=== PATIENT | male | born 1950 | race Caucasian/White ===

== ENCOUNTER 2017-05-23 22:14 | Inpatient (IN) | payer OTHER, MEDICAID ==
[~2017-05-23] VITALS: Ht 172.7 cm; Wt 93.9 kg
[~2017-05-23 22:14] MED LIST: ALBMDI INH; BENZ100C67 PO; CLAR500T PO; PHEDM120 PO
[2017-05-23 22:15] VITALS: BP_SYST 105
--- NOTE | 2017-05-23 22:21 | NUR ---
Placed in room 02 . Placed on cardiac cath rn, blood pressure machine and pulse oximeter. To gown for exam. Side rails up. Report given to ANETTE Cuevas.
--- NOTE | 2017-05-23 22:28 | NUR ---
Pt seen in room 2. pt is awake, alert, oriented. Presented claiming blood pressure to be low this afternoon. Pt states he went up to the restroom stated difficulty and dizziness, in which his son took his BP at that time and it was reportedly "80's over 40's". Pt had been admitted several days ago for pneumonia in which he spent 3 days in the hospital receiving antibiotics.
[2017-05-23] MEDS ORDERED: NACL 0.9% 1,000 ML IV ONE (22:30)
--- NOTE | 2017-05-23 22:33 | NUR ---
ER Dr. Nobles at bedside examining patient.
[2017-05-23 23:18] LABS: HEMATOCRIT 45.6 % (36-54); HEMOGLOBIN 14.9 g/dL (14.0-18.0); MEAN CORPUSCULAR HEMOGLOBIN 29 pg (27-31); MEAN CORPUSCULAR HGB CONC 33 % (32-36); MEAN CORPUSCULAR VOLUME 88 fL (79.0-98.0); PLATELET COUNT (AUTO) 303 K/uL (130-430); RED BLOOD CELL COUNT(AUTO) 5.19 MIL/uL (4.2-6.2); RED CELL DISTRIBUTION WIDTH 12.6 % (9.0-15.0); WHITE BLOOD COUNT (AUTO) 23.1 K/uL (4.8-10.8)
[2017-05-23 23:41] LABS: BAND % (MANUAL) 1 % (0-6); BASOPHILS % (MANUAL) 0 % (0-2); EOSINOPHILS % (MANUAL) 0 % (0-7); LYMPHOCYTES % (MANUAL) 7 % (20-46); MONOCYTES % (MANUAL) 7 % (0-11)
[2017-05-23 23:51] LABS: ALANINE AMINOTRANSFERASE 31 U/L (12-78); ALBUMIN 3.5 g/dL (3.4-4.8); ASPARTATE AMINOTRANSFERASE 18 U/L (10-37); CALCIUM 9.5 mg/dL (8.4-11.0); CHLORIDE 98 mmol/L (98-107); CREATININE 1.41 mg/dL (0.55-1.30); GLUCOSE 224 mg/dL (70-99); LIPASE 186 U/L (73-393); POTASSIUM 4.1 mmol/L (3.5-5.1); SODIUM SERUM 135 mmol/L (136-145)
[2017-05-24] VITALS (7 sets, daily range): BP systolic 122–143
[2017-05-24 00:09] LABS: ANION GAP 12 (5-15); UREA NITROGEN, BLOOD 18 mg/dL (8-21)
[2017-05-24 00:21] LABS: GFR AFRICAN AMERICAN 65 mL/min (>90)
[2017-05-24] MEDS ORDERED: NACL 0.9% 1,000 ML IV ONE ×2 (00:45→02:15)
[2017-05-24] MEDS ORDERED: PIPERACILLIN/TAZO 4.5 GM in NS 100 ML IV ONE (02:15)
[2017-05-24] MEDS ORDERED: PIPERACILLIN/TAZOBACTAM 4.5 GM/VIAL (ZOSYN) IV ONE (02:25)
[2017-05-24 02:57] LABS: BILIRUBIN,URINE NEGATIVE (NEGATIVE); BLOOD, URINE NEGATIVE (NEGATIVE); CLARITY/URINE CLEAR (CLEAR); COLOR,URINE YELLOW (YELLOW); GLUCOSE,URINE NEGATIVE (NEGATIVE); KETONES,URINE NEGATIVE (NEGATIVE); LEUKOCYTE ESTERASE ,URINE NEGATIVE (NEGATIVE); NITRITE, URINE NEGATIVE (NEGATIVE); PROTEIN URINE 2+ (NEGATIVE); UROBILINOGEN,URINE 0.2 (0.2-1.0)
[2017-05-24 03:08] LABS: BACTERIA,URINE FEW /HPF (None Seen); RBC,URINE 0-3 /HPF (0-3); WBC,URINE 0-3 /HPF (0-3)
[2017-05-24] MEDS ORDERED: ERGO500043 PO (04:28)
[2017-05-24] MEDS ORDERED: PRO20 PO (04:28)
[2017-05-24] MEDS ORDERED: DIPH25CA83 PO (04:28)
[2017-05-24] MEDS ORDERED: [UNRECOGNIZED DRUG - CODE] PO (04:28)
[2017-05-24] MEDS ORDERED: FLO220 INH (04:28)
[2017-05-24] MEDS ORDERED: SITA100T7 PO (04:28)
[2017-05-24] MEDS ORDERED: CANA100T PO (04:28)
[2017-05-24] MEDS ORDERED: OLME1TAB34 PO (04:28)
[2017-05-24] MEDS ORDERED: MONT10TA22 PO (04:28)
[2017-05-24] MEDS ORDERED: LEVO500T20 PO (04:28)
[2017-05-24] MEDS ORDERED: GLU500 PO (04:28)
[2017-05-24] MEDS ORDERED: ROSU20TA PO (04:28)
[2017-05-24] MEDS ORDERED: HYDR-4100 PO (04:28)
[2017-05-24] MEDS ORDERED: INSULIN REGULAR, HUMAN 100 UNITS/ML, 10 ML VIAL (novoLIN R) SUBCUT PRN (04:45)
[2017-05-24] MEDS ORDERED: cefTRIAXone 1 GM IVPB PREMIX 50 ML IV SCH (04:45)
--- NOTE | 2017-05-24 04:55 | NUR ---
SPOKE TO DR HANNON FOR ADMISSION ORDERS.
--- NOTE | 2017-05-24 05:19 | NUR ---
ADMIT NOTE Received pt from ER to the floor with a diagnosis of sepsis. Admission process initiated. patient oriented to pain management, safety and call light-teach back done.
--- NOTE | 2017-05-24 05:25 | NUR ---
Patient will be admitted to care of DR. CA. Admitted to TELEMETRY unit. Will go to room 100B. Belongings list completed. Summary report printed. Report given at bedside.
[2017-05-24] MEDS ORDERED: cefTRIAXone 1 GM IVPB PREMIX 50 ML IV ONE (05:46)
[2017-05-24] MEDS: NACL 0.9% 1,000 ML IV SCH ×2 (05:48→11:24)
[2017-05-24] MEDS: cefTRIAXone 1 GM IVPB PREMIX 50 ML IV SCH (05:48)
--- NOTE | 2017-05-24 06:23 | NUR ---
Patient awake alert ambulatory skin dry warm intact procedures explained call cross with patient safety measures implemented / .
--- NOTE | 2017-05-24 06:24 | NUR ---
BLOOD SUGAR BLOOD SUGAR READIN. NO COVERAGE GIVEN PER SLIDING SCALE. WILL CONTINUE TO MONITOR.
--- NOTE | 2017-05-24 06:25 | NUR ---
ROCEPHIN 1 GM IVPB INFUSING , NO S/SX OF ALLERGIC REACTION NO HIVES SKIN REMAINS RASH FREE , continue to monitor .
--- NOTE | 2017-05-24 06:43 | NUR ---
CLOSING NOTE WILL ENDORSE CARE AND REPORT TO DAY SHIFT NURSE. PATIENT IS RESTING IN BED WITH EYES OPEN. PT IN STABLE CONDITION AT THIS TIME. NO NEW NEEDS AT THIS TIME. FALL AND SAFETY PRECAUTIONS IN PLACE. IV FLUIDS AND ABX RUNNING PER ORDERS. NO S/S OF DISTRESS OR DISCOMFORT AT THIS TIME. CALL LIGHT WITH PATIENT.
[2017-05-24] MEDS: IPRATROPIUM/ALBUTEROL SULFATE 3 ML AMPUL.NEB INH SCH ×4 (07:00→23:00)
--- NOTE | 2017-05-24 07:26 | NUR ---
OPENING NOTE: PATIENT JONI IN BED RESTING. IV PATENT AND INTACT.. SCDS IN PLACE. PATIENT DENIES PAIN AND DISCOMFORT. PATIENT DENIES DIZZINESS AND WEAKNESS. BREATHING IS EVEN AND UNLABORED WITH NO SIGNS OF DISTRESS. BED IN LOW POSITION, WHEELS LOCKED , SIDE RIALS X3 AND CALL LIGHT WITHIN REACH. WILL CONTINUE TO MONITOR.
[2017-05-24] MEDS: AZITHROMYCIN 250 MG TABLET PO SCH (09:02)
--- NOTE | 2017-05-24 10:03 | NUR ---
ROUNDING: PATIENT LAYING IN BED RESTING.
--- NOTE | 2017-05-24 11:59 | NUR ---
ROUNDING: PATIENT LAYING IN BED RESTING. PATIENT DENIES PAIN AND DISCOMFORT. BREATHING IS EVEN AND UNLABORED WITH NO SIGNS OF DISTRESS. MORNING MEDICATIONS TOLERATED WELL. SAFETY PRECAUTIONS TAKEN. WILL CONTINUE TO MONITOR.
--- NOTE | 2017-05-24 13:59 | NUR ---
ROUNDING: PATIENT LAYING IN BED RESTING. TALKING ON PHONE.
--- NOTE | 2017-05-24 16:00 | NUR ---
ROUNDING: PATIENT LAYING IN BED RESTING. FAMILY AT BEDSIDE. PATIENT DENIES PAIN AND DISCOMFORT. ALL NEEDS MET. WILL CONTINUE TO MONITOR.
[2017-05-24] MEDS ORDERED: PROMETHAZINE-DM 6.25 MG-15 MG/5 ML UDC PO PRN (16:45)
[2017-05-24] MEDS ORDERED: HYDROcodone/ACETAMIN 10-325 MG TAB PO PRN (16:45)
[2017-05-24] MEDS ORDERED: FLUoxetine HCL 20 MG CAPSULE (PROzac) PO ONE (16:45)
[2017-05-24] MEDS: metFORMIN HCL 500 MG TABLET PO SCH (17:07)
--- NOTE | 2017-05-24 17:44 | NUR ---
CARDIO CONSULTS CALLED CARDIAC CONSULT WITH DR ABAD, DR [employer]. SPOKE TO LAVERNE MADISON.
--- NOTE | 2017-05-24 18:17 | NUR ---
CLOSING NOTE: PATIENT SITTING IN BED ON PHONE. IV PATENT AND INTACT. SCDS IN PLACE. PATIENT DENIES PAIN AND DISCOMFORT. PATIENT DENIES HEADACHE AND DIZZINESS. BREATHING IS EVEN AND UNLABORED WITH NO SIGNS OF DISTRESS. NO EPISODES OF HYPOTENSION NOTED ON SHIFT. BED IN LOW POSITION, WHEELS LOCKED, SIDE RIALS X3 AND CALL LIGHT WITHIN REACH. ALL NEEDS MET. WILL ENDORSE PLAN OF CARE TO NOC, NURSE.
--- NOTE | 2017-05-24 19:15 | NUR ---
change of shift.pt.presents stable status.pt.introduce outside room;pt.is ambulating.pt.presents stable status;general. iv access:lock.respiratory status stable;absent distress/discomfort.f/u w/ pt.when returns to room.
--- NOTE | 2017-05-24 20:00 | NUR ---
pt.assessed.v/s assessed;values w/in normal limits.b/p slight elevation;pt.returned to bed post ambulation. no c/o pain,nausea.i have apprised the pt.that snacks are available throughout the shift.no requests@this hour. room air respiratory status stable.call light/telephone w/in the pt's reach.
[2017-05-24] MEDS ORDERED: MONTELUKAST 10 MG TABLET PO SCH (21:00)
--- NOTE | 2017-05-24 22:00 | NUR ---
pt.assessed.pt,.presents quiescent affect;calm,asleep.pt.capable to reposition self.absent distress/discomfort.breathing pattern/character absent distress/discomfort.call light/telephone w/in the pt's reach.
[2017-05-25 00:53] VITALS: BP_SYST 137
[2017-05-25] MEDS: IPRATROPIUM/ALBUTEROL SULFATE 3 ML AMPUL.NEB INH SCH ×3 (03:00→10:06)
[2017-05-25] MEDS: cefTRIAXone 1 GM IVPB PREMIX 50 ML IV SCH (05:21)
--- NOTE | 2017-05-25 06:30 | NUR ---
pt.has presented stable status w/in the shift.pt.has utilized the restroom and the urinal.i have emptied the urinal throughout the shift.pt.presents room air:02 sat%=98%;breathing pattern;absent distress/discomfort.hhn:ordered;q-4hrs/p.pt.ambulatory.gait steady.pt.had c/o pain;headache.i administered norco:10/325mg po;headache resolved;there is no existing tylenol order.blood glucose assessed x2;blood glucose values w/i normal limits;no coverage per sliding scale required.pt.had requested snacks: i have provided the snacks:throughout the shift.call ligth/telewphone w/in the pt's reach.
[2017-05-25 07:41] LABS: BASOPHILS % (AUTO) 0.3 % (0.0-2.0); EOSINOPHILS # (AUTO) 0.1 K/uL (0.0-0.4); EOSINOPHILS % (AUTO) 0.8 % (0.0-4.0); HEMATOCRIT 43.1 % (36-54); HEMOGLOBIN 14.1 g/dL (14.0-18.0); LYMPHOCYTES # (AUTO) 2.4 K/uL (1.0-5.5); LYMPHOCYTES % (AUTO) 18.1 % (20.5-51.5); MEAN CORPUSCULAR HEMOGLOBIN 29 pg (27-31); MEAN CORPUSCULAR HGB CONC 33 % (32-36); MEAN CORPUSCULAR VOLUME 88 fL (79.0-98.0); MONOCYTES # (AUTO) 1.5 K/uL (0.0-1.0); NEUTROPHILS # (AUTO) 9.5 K/uL (1.8-7.7); NEUTROPHILS % (AUTO) 69.8 % (40.0-70.0); PLATELET COUNT (AUTO) 281 K/uL (130-430); RED BLOOD CELL COUNT(AUTO) 4.88 MIL/uL (4.2-6.2); RED CELL DISTRIBUTION WIDTH 12.8 % (9.0-15.0); WHITE BLOOD COUNT (AUTO) 13.5 K/uL (4.8-10.8)
[2017-05-25 07:48] VITALS: BP_SYST 144
--- NOTE | 2017-05-25 07:58 | NUR ---
RECEIVED PT IN ROOM, PT SITTING ON EOB, PT IS AAOX4,PT AMBULATORY. DENIES PAIN, PT ON RA, NO SOB, NO DISTRESS,. PT HAS COUGH BUT NON PRODUCTIVE THIS TIME, VITALS WNL. AFEBRILE. ENCOURAGED TO CALL FOR ASSIST AND PAIN MEDS. WILL CONT TO MONITOR.
[2017-05-25] MEDS: metFORMIN HCL 500 MG TABLET PO SCH (08:13)
[2017-05-25] MEDS: AZITHROMYCIN 250 MG TABLET PO SCH (08:14)
[2017-05-25 08:22] LABS: ALBUMIN 3.7 g/dL (3.4-4.8); CALCIUM 9.8 mg/dL (8.4-11.0); CREATININE 0.74 mg/dL (0.55-1.30); TOTAL BILIRUBIN 0.6 mg/dL (0.0-1.0)
[2017-05-25] MEDS ORDERED: FLUoxetine HCL 20 MG CAPSULE (PROzac) PO SCH (09:00)
[2017-05-25] MEDS ORDERED: ATORVASTATIN 20 MG TABLET PO SCH (09:00)
[2017-05-25] MEDS ORDERED: MECLIZINE HCL 25 MG TABLET (ANITVERT) PO ONE (09:30)
--- NOTE | 2017-05-25 10:00 | NUR ---
PT IN BED, RESTING, PT C/O OF WEAKNESS AND LITTLE DIZZINESS, BP IS 135/84 HR 69. NO C/O PAIN. MD SAW PT. BED IN LOW POSITION. WILL CONT TO MONITOR.
[2017-05-25 12:00] VITALS: BP_SYST 132
--- NOTE | 2017-05-25 12:00 | NUR ---
PT SITTING IN CHAIR, AAO, DENIES PAIN. NO SOB, NO DISTRESS. PT STATED HE FEELS BETTER NOW AFTER FEELING A LITTLE WEEK EARLIER. WILL CONT TO MONITOR.
--- NOTE | 2017-05-25 14:00 | NUR ---
pt sitting on chair, pt is aao. no sob, no distress. pt anxious to go home. will cont to monitor.
--- NOTE | 2017-05-25 14:48 | NUR ---
DISCHARGE PLANNING DC order to arrange home health. [phone]. Will follow up. Addendum: 05/25/17 at 1626 by Ira Buckner DP [phone] left voice message requesting return call back. Addendum: 05/26/17 at 1007 by Ira Buckner DP Per insurance CM at [facility] health has been arranged with [phone].
[2017-05-25] MEDS ORDERED: MECLIZINE HCL 25 MG TABLET (ANITVERT) PO SCH (15:00)
[2017-05-25 15:05] VITALS: BP_SYST 139
--- NOTE | 2017-05-25 16:09 | NUR ---
D/C Patient Patient given medication reconciliation form and D/C instructions. Exit Care provided. Patient verbalized understanding. MD discussed with patient the results and treatment provided. Ambulatory with steady gait for discharge to home. Patient in stable condition, ID band removed. IV catheter removed, intact and dressing applied, no active bleeding. Rx of given. Patient educated on pain management. All belongings sent with patient. Pre-dc vitals wnl, pt is afebrile.
== END 2017-05-25 15:45 | disposition home health service (06) | DRG 314 ==
LOC: SED 22:14 → STU 05-24 04:44 → SMU 05-24 05:30 → STU 05-24 06:30 → SMU 05-25 14:59
PROVIDERS: ADMIT Internal Medicine; ATTEND Internal Medicine
DX: I95.9 Hypotension, unspecified (principal); J18.9 Pneumonia, unspecified organism; E11.65 Type 2 diabetes mellitus with hyperglycemia; E78.5 Hyperlipidemia, unspecified; F41.9 Anxiety disorder, unspecified; I25.10 Atherosclerotic heart disease of native coronary artery without angina pectoris; I10 Essential (primary) hypertension; I44.7 Left bundle-branch block, unspecified; T46.5X5A Adverse effect of other antihypertensive drugs, initial encounter; Y92.89 Other specified places as the place of occurrence of the external cause; Z79.899 Other long term (current) drug therapy; Z87.891 Personal history of nicotine dependence; I25.2 Old myocardial infarction; Z79.84 Long term (current) use of oral hypoglycemic drugs
CPT/HCPCS: 36415; 71045; 80053; 81000-TC; 82962; 83605; 83690-TC; 83735-TC; 83880; 84439; 84484; 85007; 85025; 85027; 87040-TC; 87081; 93005; 94640; 99285; J0696; J1815; J2543; J7030; J8597; Q0144